=== PATIENT | male | born 1935 | race Caucasian/White ===

== ENCOUNTER → 2018-04-22 | Outpatient (CLI) | payer OTHER ==
[~2018-04-22] MED LIST: ASPI81EC PO; MULVITMINF PO; NAPR550 PO; OMEP10ER PO; OMEP20ER PO; OXYACE5T PO; RXOXYACE PO
[2018-04-23 23:55] LABS: Stool Occult Bld Immuno 1 Positive (NEGATIVE)
[2018-04-23 23:56] LABS: Stool Occult Bld Immuno 2 Positive (NEGATIVE); Stool Occult Bld Immuno 3 Positive (NEGATIVE)
== END | disposition home or self-care (01) ==
LOC: LAB 14:54
PROVIDERS: Family Medicine
DX: D64.9 Anemia, unspecified (principal)
CPT/HCPCS: G0328

== ENCOUNTER 2018-07-30 10:32 | Day surgery (SDC) | payer OTHER ==
[~2018-07-30] VITALS: Ht 175.3 cm; Wt 87.5 kg
[~2018-07-30 10:32] MED LIST changes: +Cialis20 MG; +Ferrous Sulfat325 M2; +TERA5
== END 2018-07-30 13:35 | disposition home or self-care (01) ==
LOC: ORSCSDS 10:32
PROVIDERS: Surgery
PROC: 05H533Z Insertion of Infusion Device into Right Subclavian Vein, Percutaneous Approach (ICD-10-PCS; principal; 2018-07-30 12:00)
PROC: B5161ZA Fluoroscopy of Right Subclavian Vein using Low Osmolar Contrast, Guidance (ICD-10-PCS; principal; 2018-07-30 12:00)
DX: C16.9 Malignant neoplasm of stomach, unspecified (principal); Z79.899 Other long term (current) drug therapy; Z87.891 Personal history of nicotine dependence; Z79.82 Long term (current) use of aspirin; Z85.038 Personal history of other malignant neoplasm of large intestine
CPT/HCPCS: 71045; 77001; C1788; J0690; J1642; J2250; J3010; J7120

== ENCOUNTER 2024-03-16 17:50 | Inpatient (IN) | payer OTHER ==
[~2024-03-16] VITALS: Ht 175.3 cm; Wt 83.0 kg
[~2024-03-16 17:50] MED LIST changes: +Percocet 10-321 EACH PO; -TERA5; +TERA5 PO
[2024-03-16] MEDS ORDERED: SILD25T (18:03)
[2024-03-16] MEDS ORDERED: IBUP200 (18:03)
[2024-03-16] MEDS ORDERED: Morphine Sulfate 4 MG/1 ML Injection IV ONE (18:10)
[2024-03-16] MEDS ORDERED: Ondansetron HCl 2 MG / ML 2ML Vial IV ONE (18:10)
[2024-03-16 19:11] LABS: BASOPHILS ABSOLUTE AUTO 0.05 K/mm3 (0.00-0.23); BASOPHILS PERCENT AUTO 1 % (0-2); EOSINOPHILS ABSOLUTE AUTO 0.13 K/mm3 (0.00-0.68); EOSINOPHILS PERCENT AUTO 2 % (0-6); IMMATURE GRAN ABSOLUTE AUTO 0.06 K/mm3 (0.00-0.10); IMMATURE GRAN PERCENT AUTO 1 % (0-1); LYMPHOCYTES ABSOLUTE AUTO 1.28 K/mm3 (0.84-5.20); LYMPHOCYTES PERCENT AUTO 14 % (21-46); MONOCYTES ABSOLUTE AUTO 0.61 K/mm3 (0.16-1.47); MONOCYTES PERCENT AUTO 7 % (4-13); Mean Corpuscular HGB 30.6 pg (26.0-34.0); Mean Corpuscular Volume 88 fL (80-100); Mean Platelet Volume 9.7 fL (9.1-12.4); NEUTROPHILS ABSOLUTE AUTO 6.73 K/mm3 (1.96-9.15); NEUTROPHILS PERCENT AUTO 76 % (41-73); Platelet Count 228 K/mm3 (150-400); RDW Coefficient Variation 12.7 % (11.7-14.2); RDW Standard Deviation 40.8 fL (35.1-46.3); Red Blood Cell Count 4.57 M/mm3 (4.30-5.90); White Blood Cell Count 8.86 K/mm3 (4.00-11.30)
[2024-03-16 19:23] LABS: Albumin, Blood 3.8 g/dL (3.4-5.0); Albumin/Globulin Ratio 1.2 (0.8-1.8); Bilirubin, Total 0.4 mg/dL (0.1-1.0); Bun/Creatinine Ratio 24.7 (12.0-20.0); Calcium, Blood 8.3 mg/dL (8.5-10.1); Creatinine, Blood 0.65 mg/dL (0.60-1.20); Globulin, Blood 3.3 g/dL (2.2-4.0); Potassium, Blood 3.6 mmol/L (3.5-5.5); Total Protein, Blood 7.1 g/dL (6.4-8.2)
[2024-03-16 19:45] LABS: International Normalized Ratio 1.05; Prothrombin Time Results 11.2 Sec (9.7-11.5)
[2024-03-16] MEDS ORDERED: NS 1,000 ML IV SCH (20:15)
[2024-03-16] MEDS ORDERED: OxyCODONE HCL 5 MG TAB PO PRN (20:15)
[2024-03-16] MEDS ORDERED: Acetaminophen 325 MG TABLET PO PRN (20:15)
[2024-03-16] MEDS ORDERED: Ondansetron HCl 2 MG / ML 2ML Vial IV PRN (20:20)
[2024-03-16] MEDS ORDERED: Doxazosin Mesylate 2 MG Tab PO SCH (21:00)
[2024-03-16 22:44] VITALS: BP 159/73
[2024-03-16] MEDS ORDERED: Morphine Sulfate 4 MG/1 ML Injection IV PRN (22:55)
--- NOTE | 2024-03-16 23:25 | NUR ---
PT ARRIVED TO ROOM 214 FROM ER. PT A/O X4 UPON ARRIVAL. VSS. RLE SHORTENED. EXT ROTATED. PEDAL PULSES AND CAP REFILL WNL, PT DENIES N/T. PT ORIENTED TO ROOM, CALL LIGHT AND NPO STATUS.
[2024-03-17] VITALS (18 sets, daily range): BP systolic 135–173; BP diastolic 59–88
[2024-03-17 04:53] LABS: Source, Urine Foley catheter
[2024-03-17 04:57] LABS: Bilirubin, Urine Neg (Neg); Blood, Urine 1+ (Neg); Glucose Qualitative, Urine 4+ (Neg); Ketones, Urine Neg (Neg); Leukocyte Esterase, Urine Neg (Neg); Nitrite, Urine Neg (Neg); Protein, Urine Neg (Neg); Urobilinogen, Urine NORM (Normal)
[2024-03-17 05:26] LABS: Appearance, Urine Clear (Clear); Color, Urine Yellow (P-Yellow)
[2024-03-17 05:32] LABS: White Blood Cells, Urine 0-2 /hpf (0-5)
[2024-03-17 05:34] LABS: Hyaline Casts 0-2 /lpf (0-2)
[2024-03-17 05:35] LABS: Squamous Epithelial Cells Not Seen /hpf (Few)
[2024-03-17 05:36] LABS: Bacteria Rare /hpf; Renal Epithelial Rare /hpf (0-Rare)
--- NOTE | 2024-03-17 07:31 | NUR ---
PT VSS SINCE ARRIVING TO FLOOR. PAIN MGD W/4MG MORPHINE W/REP RELIEF. RECINOS PLACED R/T RETENTION; BLADDER SCAN >900, PT UNABLE TO VOID W/URINAL. PT NPO AWAITING SURGERY PLANS. IVF CONT PER ORDERS.
[2024-03-17] MEDS ORDERED: Tranexamic Acid 100 ML IV SCH (07:50)
[2024-03-17] MEDS ORDERED: Ropivacaine 0.5% HCl/Pf 123.125 MG,EPINEPHrine HCL 0.25 MG,Ketorolac Tromethamine 15 MG... INFIL SCH (07:50)
[2024-03-17] MEDS ORDERED: CeFAZolin Sodium 2,000 MG in NS 100 ML IV SCH ×2 (07:50→22:30)
[2024-03-17] MEDS ORDERED: Lactated Ringer's 1,000 ML IV SCH (13:15)
--- NOTE | 2024-03-17 13:31 | NUR ---
20G RFA. PATENT. DRESSING D&I.
[2024-03-17] MEDS ORDERED: Midazolam HCl 1MG / ML 2ML Vial ONE (13:41)
[2024-03-17] MEDS ORDERED: Bupivacaine 0.5% HCl 5 MG/ML 30MLVIAL ONE (13:41)
[2024-03-17] MEDS ORDERED: Lidocaine HCl 2% 20 ML MDV ONE (13:41)
[2024-03-17] MEDS ORDERED: Rocuronium Bromide 10 MG/ML 5ML Injection IV ONE (13:44)
[2024-03-17] MEDS ORDERED: propofoL 20 ML IV ONE (13:44)
[2024-03-17] MEDS ORDERED: FentaNYL Citrate 50 MCG/ML 2 ML Injection ONE (13:44)
[2024-03-17] MEDS ORDERED: Bupivacaine HCl 2.5 MG/ML 10ML P/F Injection ONE (14:11)
--- NOTE | 2024-03-17 14:19 | NUR ---
1357: DR BEAVERS AT BEDSIDE TO PERFORM FASCIA ILIAC NERVE BLOCK IN PREOP. 1400: TIME OUT COMPLETE BY RN. PT PREMEDICATED WITH VERSED BY DR BEAVERS. 1404: PROCEDURE START 1414: PROCEDURE END PT ON RA WITH CONTINOUS PULSE OXIMETRY MONITORED THROUGHOUT PROCEDURE. VSS THROUGHOUT PROCEDURE. PT TOLERATED PROCEDURE WELL.
[2024-03-17] MEDS ORDERED: Ketorolac Tromethamine 30mg Vial ONE (14:50)
[2024-03-17] MEDS ORDERED: Ondansetron HCl 2 MG / ML 2ML Vial ONE (14:50)
[2024-03-17] MEDS ORDERED: Dexamethasone Sod Phos 10 MG/ML 1ML VIAL ONE (14:50)
[2024-03-17] MEDS ORDERED: Sugammadex Sodium 200 MG/2ML SDV (100 MG/ML) ONE (14:51)
[2024-03-17] MEDS ORDERED: Glycopyrrolate 0.2 MG/ML 5ML VIAL ONE (15:16)
--- NOTE | 2024-03-17 17:27 | NUR ---
POST OP ASSESSMENT PATIENT ARRIVED FROM OR VIA HOSPITAL BED. RIGHT ALLIE HIP INCISION COVERED WITH AQUACEL, FREE OF DRAINAGE. SOFT WHEN PALPATED. PATIENT IS SLEEPY BUT AROUSABLE TO VOICE. PPP. VSS. PATIENT HAD NERVE BLOCK AND CANNOT YET FEEL OR WIGGLE TOES. WILL REASSESS WHEN THIS WEARS OFF. JORJE WNL. 2L NC. LUNGS CLEAR. HRR. IVF INFUSING.
[2024-03-18 02:56] VITALS: BP 157/78
[2024-03-18 05:38] LABS: Hematocrit 35.1 % (37.0-53.0); Hemoglobin 12.3 g/dL (13.5-17.5); Mean Corpuscular Volume 88 fL (80-100); Mean Platelet Volume 9.9 fL (9.1-12.4); Platelet Count 195 K/mm3 (150-400); RDW Coefficient Variation 12.5 % (11.7-14.2); RDW Standard Deviation 40.3 fL (35.1-46.3); Red Blood Cell Count 3.97 M/mm3 (4.30-5.90); White Blood Cell Count 12.03 K/mm3 (4.00-11.30)
[2024-03-18 06:15] LABS: Bun/Creatinine Ratio 23.7 (12.0-20.0); Calcium, Blood 8.2 mg/dL (8.5-10.1); Creatinine, Blood 0.63 mg/dL (0.60-1.20)
[2024-03-18 07:13] VITALS: BP 145/77
--- NOTE | 2024-03-18 07:38 | NUR ---
POD 1 S/P RIGHT ALLIE HIP. PT VSS T/O NIGHT, SATS >90% ON RA THIS AM. PT FOEGETFUL EARLY IN NIGHT, IS MORE CLEAR THIS AM, IS USING CALL LIGHT FOR ASSISTANCE. DRESSING CDI. PEDAL PULSES AND CAP REFILL WNL, PT DENIED N/T. PT REP PAIN MINIMAL, MED W/TYLENOL THIS AM FOR INCISIONAL DISCOMFORT. RECINOS DRNG YELLOW URINE. PLAN TO MOBILIZE W/PT TODAY.
[2024-03-18] MEDS ORDERED: Aspirin 81 MG TabEC PO SCH (09:00)
--- NOTE | 2024-03-18 11:00 | NUR ---
Pt. is awake in bed and welcomed my visit. Pt. is pleasant and verbalized that he has seen this mammography technician when his had been a pt. Was in the process of establishing rapport when OT arrived. Pt. agreed to have me return at a later time.
[2024-03-18] MEDS ORDERED: Polyethylene Glycol 3350 17 gm PO SCH (13:00)
[2024-03-18] MEDS ORDERED: OxyCODONE HCL 5 MG TAB PO PRN (14:25)
[2024-03-18 16:33] VITALS: BP 124/89
--- NOTE | 2024-03-18 17:58 | NUR ---
SHIFT SUMMARY POD 1 WITH A RIGHT ALLIE HIP. INCISION COVERED WITH AQUACEL DRESSING, FREE OF DISCHARGE. PPP. VSS. DENIES N/T. WORKED WITH PT THIS MORNING AND AMBULATED TO CHAIR. EATING AND DRINKING OK. DENIES N/V. PAIN MANAGED PER EMAR, BUT AFTER OXY ADMINISTERED, PT HAS BEEN CONFUSED. BED ALARM ON FOR SAFETY. FAMILY AT BEDSIDE.
--- NOTE | 2024-03-18 18:52 | NUR ---
SHIFT NOTE UNSUCCESSFUL ATTEMPT TO URINATE IN THE URINAL. GOT HIM TO A STANDING POSITION AND RAN WATER WITHOUT SUCCESS. BLADDER SCANNED WITH A READING OF 258.
[2024-03-18 20:33] VITALS: BP 139/68
[2024-03-18] MEDS ORDERED: Sennosides 8.6 MG Tab PO SCH (21:00)
[2024-03-19 04:57] VITALS: BP 146/73
[2024-03-19 05:58] LABS: Hematocrit 33.1 % (37.0-53.0); Hemoglobin 11.6 g/dL (13.5-17.5); Mean Corpuscular HGB 30.7 pg (26.0-34.0); Mean Corpuscular Volume 88 fL (80-100); Mean Platelet Volume 9.7 fL (9.1-12.4); Platelet Count 190 K/mm3 (150-400); RDW Coefficient Variation 12.8 % (11.7-14.2); RDW Standard Deviation 40.7 fL (35.1-46.3); Red Blood Cell Count 3.78 M/mm3 (4.30-5.90); White Blood Cell Count 8.42 K/mm3 (4.00-11.30)
--- NOTE | 2024-03-19 06:37 | NUR ---
POD 1 S/P RIGHT ALLIE HIP. PT VSS T/O NIGHT. DRESSING CDI, SITE SOFT TO PALP. PULSES AND CAP REFILL WNL. PAIN MGD W/TYLENOL AND REPOSITIONING. ATTEMPTED TO LIMIT NARCOTICS R/T PT CONFUSION. PT HAD SEVERAL VOIDS >250, BLADER SCAN THIS AM READ >700, STRAIGHT CATH DONE X1 W/SMALL AMT BLOOD NOTED ON CATH AFTER REMOVED. PT REMAINED PLEASANTLY CONFUSED, A/O X2-3 DURING NIGHT. PT IMPULSIVE, ATTEMPTED TO GET UP OOB OFTEN DURING NIGHT, WAS EASILY REDIRECTABLE, BED ALARM ON FOR SAFETY. BENEFITS OF SNF REVIEWED W/PT. PT STATES PLAN FOR DAUGHTER TO COME TODAY TO DISCUSS DC PLANNING.
[2024-03-19 06:42] LABS: Bun/Creatinine Ratio 25.3 (12.0-20.0); Calcium, Blood 8.1 mg/dL (8.5-10.1); Creatinine, Blood 0.63 mg/dL (0.60-1.20); Potassium, Blood 3.7 mmol/L (3.5-5.5)
[2024-03-19 07:00] VITALS: BP 165/78
[2024-03-19 15:00] VITALS: BP 148/83
[2024-03-19] MEDS ORDERED: Aspir 8181 MG PO (15:37)
[2024-03-19] MEDS ORDERED: MIRALAX11914 PO (15:40)
[2024-03-19] MEDS ORDERED: Senna-Extra17.2 MG PO (15:41)
[2024-03-19] MEDS ORDERED: TRAM50 PO (15:41)
--- NOTE | 2024-03-19 17:34 | NUR ---
DISCHARGE NOTE PT WHEELED OUT TO SONS CAR VIA WHEELCHAIR. R HIP INCISION COVERED WITH AQUACEL. C/D/I. PPP. VSS. EATING DRINKING AND VOIDING WITHOUT DIFFICULTY. PT REPORTS PAIN IS MANAGED EFFECTIVELY WITH TYLENOL. BECAME LESS CONFUSED THE DAY WENT ON. REORIENTED NEEDED. HOME HEALTH SET TO FOLLOW UP WITH HIM.
== END 2024-03-19 17:34 | disposition home health service (06) | DRG 521 ==
LOC: ER 17:50 → SURS 21:28
PROVIDERS: Emergency Medicine; Internal Medicine; Orthopaedic Surgery Sports Medicine; ADMIT Internal Medicine
PROC: 0SRR0JZ Replacement of Right Hip Joint, Femoral Surface with Synthetic Substitute, Open Approach (ICD-10-PCS; principal; 2024-03-17 14:00)
DX: S72.001A Fracture of unspecified part of neck of right femur, initial encounter for closed fracture (principal); G92.8 Other toxic encephalopathy; N40.1 Benign prostatic hyperplasia with lower urinary tract symptoms; R33.8 Other retention of urine; Z66 Do not resuscitate; K21.9 Gastro-esophageal reflux disease without esophagitis; I10 Essential (primary) hypertension; K59.00 Constipation, unspecified; W01.0XXA Fall on same level from slipping, tripping and stumbling without subsequent striking against object, initial encounter; Z98.890 Other specified postprocedural states; Z85.038 Personal history of other malignant neoplasm of large intestine; Z79.899 Other long term (current) drug therapy; Z87.19 Personal history of other diseases of the digestive system; Z90.49 Acquired absence of other specified parts of digestive tract; Z90.89 Acquired absence of other organs; Z87.891 Personal history of nicotine dependence; Z90.3 Acquired absence of stomach [part of]
CPT/HCPCS: 36415; 72170; 73502; 73552; 80048; 80053; 81001; 85025; 85027; 85610; 85730; 96374; 96375; 97110; 97116; 97162; 97167; 97530; 97535; 99284-25; A9270; J0171; J0690; J0735; J1100; J1885; J2250; J2270; J2405; J2704; J2795; J3010; J7030; J7120